=== PATIENT | female | born 1995 | race Caucasian/White ===

== ENCOUNTER 2019-01-25 12:44 | Emergency (ER) | payer MEDICARE ==
[~2019-01-25] VITALS: Ht 160 cm; Wt 79.0 kg
[2019-01-25 16:29] VITALS: BP 110/78
== END 2019-01-25 16:29 | disposition home or self-care (01) ==
LOC: ER 12:44
DX: N63.0 Unspecified lump in unspecified breast (principal); F17.210 Nicotine dependence, cigarettes, uncomplicated
CPT/HCPCS: 99282

== ENCOUNTER 2019-04-14 18:40 | Emergency (ER) | payer MEDICARE ==
[~2019-04-14] VITALS: Ht 167.6 cm; Wt 77.0 kg
[~2019-04-14 18:40] MED LIST: ACET650S27 RC; CEPH-569 MT; CHOL20004 PO; HYDR-4001 MT; SULF1TAB48 MT
[2019-04-14 19:09] VITALS: BP 135/83
== END 2019-04-14 22:06 | disposition left against medical advice (07) ==
LOC: ER 18:40
DX: Z53.21 Procedure and treatment not carried out due to patient leaving prior to being seen by health care provider (principal)

== ENCOUNTER 2020-12-19 12:44 | Emergency (ER) | payer MEDICAID, MEDICARE ==
[~2020-12-19] VITALS: Ht 162.6 cm; Wt 79.0 kg
[2020-12-19] MEDS ORDERED: CEFTRIAXONE SODIUM 500 MG/VIAL IM ONE (14:00)
[2020-12-19] MEDS ORDERED: FLUCONAZOLE 50MG TABLET PO ONE (16:00)
[2020-12-19] MEDS ORDERED: METR-167 MT (16:02)
[2020-12-19] MEDS ORDERED: DOXY100C2 MT (16:02)
[2020-12-19 16:25] VITALS: BP 114/68
[2020-12-22 04:07] LABS: NEISSERIA GONORRHOEAE NAA Negative (Negative)
== END 2020-12-19 16:28 | disposition home or self-care (01) ==
LOC: ER 13:03
DX: A64 Unspecified sexually transmitted disease (principal); J45.909 Unspecified asthma, uncomplicated; Z79.899 Other long term (current) drug therapy; Z88.6 Allergy status to analgesic agent
CPT/HCPCS: 87491; 87591; 96372; 99283; J0696

== ENCOUNTER 2021-04-26 10:15 | Emergency (ER) | payer MEDICAID, OTHER ==
[~2021-04-26] VITALS: Ht 165.1 cm; Wt 84.0 kg
[~2021-04-26 10:15] MED LIST changes: +DOXY100C5 MT; +METR-167 MT
[2021-04-26 10:38] VITALS: BP 108/54
[2021-04-27] MEDS ORDERED: AMOX-494 MT (15:13)
[2021-04-27] MEDS ORDERED: IBUP-2030 PO (15:13)
== END 2021-04-26 12:05 | disposition left against medical advice (07) ==
LOC: ER 10:15
DX: N63.0 Unspecified lump in unspecified breast (principal); M54.2 Cervicalgia; Z88.8 Allergy status to other drugs, medicaments and biological substances; Z79.899 Other long term (current) drug therapy; J45.909 Unspecified asthma, uncomplicated; Z98.890 Other specified postprocedural states; Z53.21 Procedure and treatment not carried out due to patient leaving prior to being seen by health care provider
CPT/HCPCS: 76641

== ENCOUNTER 2021-04-26 13:36 | Inpatient (IN) | payer OTHER ==
[~2021-04-26] VITALS: Ht 165.1 cm; Wt 83.9 kg
[2021-04-26] MEDS ORDERED: HYDROCODONE/ACETAMINOPHEN 5/325MG TABLET PO STA (20:12)
[2021-04-26] MEDS ORDERED: CLINDAMYCIN 600 MG in DEXTROSE 5% WATER 50 ML IV ONE (20:15)
[2021-04-26] MEDS ORDERED: VANCOMYCIN 1 G PREMIX 200 ML IV SCH (20:15)
[2021-04-26] MEDS ORDERED: CLINDAMYCIN 600MG PREMIX 50 ML IV SCH (20:45)
[2021-04-26 20:50] LABS: CHLORIDE 107 mEq/L (98-107)
[2021-04-26 20:52] LABS: BASOPHILS % 0.3 % (0.0-2.0); EOSINOPHILS % 1.7 % (0.0-5.0); HEMOGLOBIN. 11.5 g/dL (12.0-16.0); LYMPHOCYTES % 20.1 % (20.0-50.0); MEAN CORPUSCULAR HEMOGLOBIN 30.1 pg (28.0-32.0); MEAN CORPUSCULAR VOLUME 88.9 fL (81.0-99.0); MEAN PLATELET VOLUME 7.4 fl (7.4-10.4); MONOCYTES % 8.2 % (2.0-8.0); NEUTROPHILS % 69.7 % (40.0-76.0); PLATELET 515 x1000/uL (130-400); RED BLOOD CELL COUNT 3.83 mill/uL (4.2-5.4); RED CELL DISTRIBUTION WIDTH 12.5 % (11.6-14.6)
[2021-04-27 12:00] VITALS: BP 93/56
[2021-04-27] MEDS ORDERED: ACETAMINOPHEN 325MG TABLET PO PRN ×2 (13:00)
[2021-04-27] MEDS ORDERED: ONDANSETRON HCL 4MG/2ML INJ IV PRN (13:00)
[2021-04-27] MEDS ORDERED: IPRATROPIUM/ALBUTEROL 0.5-3(2.5)MG/3ML NEB HHN PRN (13:00)
[2021-04-27] MEDS ORDERED: CLONIDINE 0.1MG TABLET PO PRN (13:00)
[2021-04-27] MEDS ORDERED: DOCUSATE SODIUM 100MG CAPSULE PO PRN (13:00)
[2021-04-27] MEDS ORDERED: LORAZEPAM 0.5MG TABLET PO PRN (13:00)
[2021-04-27] MEDS ORDERED: NALOXONE HCL 0.4MG/ML VIAL IV PRN (13:30)
[2021-04-27] MEDS: HYDROCODONE/ACETAMINOPHEN 5/325MG TABLET PO PRN ×2 (13:47→18:37)
[2021-04-27] MEDS ORDERED: VANCOMYCIN 1500MG in DEXTROSE 5% WATER 250ML IV SCH (15:00)
[2021-04-27] MEDS ORDERED: AMOX-494 MT (15:13)
[2021-04-27] MEDS ORDERED: IBUP-2030 PO (15:13)
[2021-04-27 15:48] VITALS: BP 108/58
[2021-04-27] MEDS: PIPERACILLIN/TAZOBACTAM 3.375 G in DEXTROSE 5% WATER 50 ML IV SCH (16:05)
[2021-04-27 20:00] VITALS: BP 99/44
[2021-04-27] MEDS: VANCOMYCIN 1 G PREMIX 200 ML IV SCH (22:00)
[2021-04-28] VITALS: BP 103/55
[2021-04-28 04:00] VITALS: BP 103/49
[2021-04-28] MEDS: PIPERACILLIN/TAZOBACTAM 3.375 G in DEXTROSE 5% WATER 50 ML IV SCH ×2 (05:18→22:36)
[2021-04-28] MEDS: HYDROCODONE/ACETAMINOPHEN 5/325MG TABLET PO PRN ×2 (05:19→18:30)
[2021-04-28 06:36] LABS: BASOPHILS % 0.4 % (0.0-2.0); EOSINOPHILS % 1.7 % (0.0-5.0); HEMATOCRIT. 33.4 % (36.0-48.0); HEMOGLOBIN. 11.6 g/dL (12.0-16.0); LYMPHOCYTES % 12.8 % (20.0-50.0); MEAN CORPUSCULAR HEMOGLOBIN 30.4 pg (28.0-32.0); MEAN CORPUSCULAR VOLUME 87.7 fL (81.0-99.0); MEAN PLATELET VOLUME 7.3 fl (7.4-10.4); MONOCYTES % 7.4 % (2.0-8.0); NEUTROPHILS % 77.7 % (40.0-76.0); PLATELET 514 x1000/uL (130-400); RED BLOOD CELL COUNT 3.81 mill/uL (4.2-5.4); RED CELL DISTRIBUTION WIDTH 12.4 % (11.6-14.6)
[2021-04-28 06:43] LABS: CHLORIDE 105 mEq/L (98-107)
[2021-04-28 08:00] VITALS: BP 93/58
[2021-04-28] MEDS: VANCOMYCIN 1 G PREMIX 200 ML IV SCH (10:28)
[2021-04-28] MEDS ORDERED: SODIUM BICARBONATE 4% (2.4MEQ) 5ML VIAL IV ONE (11:01)
[2021-04-28] MEDS ORDERED: LIDOCAINE HCL/EPINEPHRINE 1%-EPI 1:100,000 20 ML VIAL ONE (11:01)
[2021-04-28 12:00] VITALS: BP 106/54
[2021-04-28] MEDS ORDERED: VANCOMYCIN 750 MG PREMIX 150 ML IV SCH (12:00)
[2021-04-28 16:19] VITALS: BP 113/51
[2021-04-28 20:00] VITALS: BP 112/60
[2021-04-29] VITALS: BP 89/49
[2021-04-29] MEDS ORDERED: VANCOMYCIN 750 MG PREMIX 150 ML IV SCH (03:00)
[2021-04-29] MEDS: HYDROCODONE/ACETAMINOPHEN 5/325MG TABLET PO PRN ×3 (03:27→21:54)
[2021-04-29 04:00] VITALS: BP 93/49
[2021-04-29] MEDS: PIPERACILLIN/TAZOBACTAM 3.375 G in DEXTROSE 5% WATER 50 ML IV SCH ×2 (05:00→13:15)
[2021-04-29 08:00] VITALS: BP 117/52
[2021-04-29 12:00] VITALS: BP 112/50
[2021-04-29 13:15] LABS: BASOPHILS % 0.4 % (0.0-2.0); HEMATOCRIT. 35.2 % (36.0-48.0); HEMOGLOBIN. 11.9 g/dL (12.0-16.0); LYMPHOCYTES % 16.3 % (20.0-50.0); MEAN CORPUSCULAR HEMOGLOBIN 29.9 pg (28.0-32.0); MEAN CORPUSCULAR VOLUME 88.6 fL (81.0-99.0); MEAN PLATELET VOLUME 7.1 fl (7.4-10.4); MONOCYTES % 8.4 % (2.0-8.0); NEUTROPHILS % 72.9 % (40.0-76.0); PLATELET 526 x1000/uL (130-400); RED BLOOD CELL COUNT 3.98 mill/uL (4.2-5.4); RED CELL DISTRIBUTION WIDTH 12.2 % (11.6-14.6)
[2021-04-29 16:00] VITALS: BP 110/18
[2021-04-29] MEDS: VANCOMYCIN 750 MG PREMIX 150 ML IV SCH ×2 (18:21→21:49)
[2021-04-29 20:00] VITALS: BP 98/59
[2021-04-30] MEDS: PIPERACILLIN/TAZOBACTAM 3.375 G in DEXTROSE 5% WATER 50 ML IV SCH ×4 (00:06→23:59)
[2021-04-30 03:06] VITALS: BP 100/54
[2021-04-30] MEDS: VANCOMYCIN 750 MG PREMIX 150 ML IV SCH (05:54)
[2021-04-30 06:44] LABS: CHLORIDE 106 mEq/L (98-107)
[2021-04-30 06:51] LABS: VANCOMYCIN TROUGH 9.3 ug/mL (5.0-10.0)
[2021-04-30 07:41] LABS: BASOPHILS % 0.3 % (0.0-2.0); HEMOGLOBIN. 12.2 g/dL (12.0-16.0); LYMPHOCYTES % 18.5 % (20.0-50.0); MEAN CORPUSCULAR HEMOGLOBIN 30.2 pg (28.0-32.0); MEAN CORPUSCULAR VOLUME 88.9 fL (81.0-99.0); MEAN PLATELET VOLUME 7.5 fl (7.4-10.4); MONOCYTES % 7.6 % (2.0-8.0); NEUTROPHILS % 71.6 % (40.0-76.0); PLATELET 525 x1000/uL (130-400); RED BLOOD CELL COUNT 4.05 mill/uL (4.2-5.4); RED CELL DISTRIBUTION WIDTH 12.3 % (11.6-14.6)
[2021-04-30 08:00] VITALS: BP 103/64
[2021-04-30] MEDS: HYDROCODONE/ACETAMINOPHEN 5/325MG TABLET PO PRN ×2 (08:59→21:32)
[2021-04-30] MEDS: VANCOMYCIN 1 G PREMIX 200 ML IV SCH ×2 (15:16→21:30)
[2021-04-30 16:00] VITALS: BP 118/64
[2021-04-30 20:00] VITALS: BP 109/66
[2021-05-01] VITALS: BP 92/45
[2021-05-01 04:00] VITALS: BP 107/58
[2021-05-01] MEDS: VANCOMYCIN 1 G PREMIX 200 ML IV SCH ×3 (05:02→21:27)
[2021-05-01 06:36] LABS: BASOPHILS % 0.5 % (0.0-2.0); EOSINOPHILS % 2.3 % (0.0-5.0); HEMATOCRIT. 33.4 % (36.0-48.0); HEMOGLOBIN. 11.7 g/dL (12.0-16.0); LYMPHOCYTES % 19.1 % (20.0-50.0); MEAN CORPUSCULAR HEMOGLOBIN 30.9 pg (28.0-32.0); MEAN CORPUSCULAR VOLUME 88.3 fL (81.0-99.0); MEAN PLATELET VOLUME 7.3 fl (7.4-10.4); MONOCYTES % 8.2 % (2.0-8.0); NEUTROPHILS % 69.9 % (40.0-76.0); PLATELET 525 x1000/uL (130-400); RED BLOOD CELL COUNT 3.78 mill/uL (4.2-5.4)
[2021-05-01 06:37] LABS: CHLORIDE 105 mEq/L (98-107)
[2021-05-01] MEDS: PIPERACILLIN/TAZOBACTAM 3.375 G in DEXTROSE 5% WATER 50 ML IV SCH ×2 (06:41→15:03)
[2021-05-01 06:45] LABS: VANCOMYCIN TROUGH 16.6 ug/mL (5.0-10.0)
[2021-05-01 08:00] VITALS: BP 111/67
[2021-05-01 12:00] VITALS: BP 111/85
[2021-05-01 16:00] VITALS: BP 109/67
[2021-05-01 20:00] VITALS: BP 116/70
[2021-05-02] VITALS: BP 102/57
[2021-05-02] MEDS: PIPERACILLIN/TAZOBACTAM 3.375 G in DEXTROSE 5% WATER 50 ML IV SCH ×3 (00:42→14:56)
[2021-05-02 04:00] VITALS: BP 104/58
[2021-05-02] MEDS: VANCOMYCIN 1 G PREMIX 200 ML IV SCH ×2 (05:09→13:03)
[2021-05-02 06:56] LABS: BASOPHILS % 0.3 % (0.0-2.0); EOSINOPHILS % 0.8 % (0.0-5.0); HEMATOCRIT. 35.7 % (36.0-48.0); HEMOGLOBIN. 11.9 g/dL (12.0-16.0); LYMPHOCYTES % 16.2 % (20.0-50.0); MEAN CORPUSCULAR HEMOGLOBIN 29.4 pg (28.0-32.0); MEAN CORPUSCULAR VOLUME 88.5 fL (81.0-99.0); MEAN PLATELET VOLUME 7.2 fl (7.4-10.4); MONOCYTES % 8.5 % (2.0-8.0); NEUTROPHILS % 74.2 % (40.0-76.0); PLATELET 574 x1000/uL (130-400); RED BLOOD CELL COUNT 4.04 mill/uL (4.2-5.4); RED CELL DISTRIBUTION WIDTH 12.5 % (11.6-14.6)
[2021-05-02 07:21] LABS: CHLORIDE 104 mEq/L (98-107)
[2021-05-02 08:00] VITALS: BP 92/54
[2021-05-02 12:00] VITALS: BP 99/63
[2021-05-02 16:00] VITALS: BP 100/59
[2021-05-02] MEDS ORDERED: SULF1TAB48 MT (16:50)
[2021-05-02 17:56] VITALS: BP 99/63
== END 2021-05-02 19:30 | disposition home or self-care (01) | DRG 720 ==
LOC: ER 13:36 → MICUSO 23:05 → 6EST 04-27 11:32
PROVIDERS: ADMIT Internal Medicine; ATTEND Internal Medicine
PROC: 0H9T3ZZ Drainage of Right Breast, Percutaneous Approach (ICD-10-PCS; principal; 2021-04-28)
DX: A41.9 Sepsis, unspecified organism (principal); D64.9 Anemia, unspecified; F17.200 Nicotine dependence, unspecified, uncomplicated; J45.20 Mild intermittent asthma, uncomplicated; N64.4 Mastodynia; Z20.822 Contact with and (suspected) exposure to COVID-19; Z88.8 Allergy status to other drugs, medicaments and biological substances; N61.1 Abscess of the breast and nipple; A49.02 Methicillin resistant Staphylococcus aureus infection, unspecified site
CPT/HCPCS: 36415; 76641; 76942; 80048; 80053; 80202; 84145; 85025; 86300; 87070; 87077; 87186; 87426; 99285; C1893; J2543; J3370; J3490; J7060

== ENCOUNTER 2023-03-24 16:01 | Emergency (ER) | payer MEDICAID, OTHER ==
[~2023-03-24] VITALS: Ht 165.1 cm; Wt 85.0 kg
[~2023-03-24 16:01] MED LIST changes: -ACET650S27 RC; -CEPH-569 MT; -CHOL20004 PO; -DOXY100C5 MT; +IBUP-2030 PO; -METR-167 MT
[2023-03-24 16:42] VITALS: O2SAT 99
[2023-03-24] MEDS ORDERED: LIDO1ADH23 TP (19:32)
[2023-03-24] MEDS ORDERED: IBUP-2028 MT ×2 (19:32)
[2023-03-24 20:03] VITALS: BP 107/72; PULSE 80; RESP 20; TEMP 97.9
== END 2023-03-24 20:05 | disposition home or self-care (01) ==
LOC: ER 16:01
DX: M53.3 Sacrococcygeal disorders, not elsewhere classified (principal); J45.909 Unspecified asthma, uncomplicated; Z88.6 Allergy status to analgesic agent; W19.XXXA Unspecified fall, initial encounter; Y93.89 Activity, other specified; Y92.89 Other specified places as the place of occurrence of the external cause; Y99.8 Other external cause status
CPT/HCPCS: 72100; 72220; 81025; 99284

== ENCOUNTER 2024-05-30 18:12 | Emergency (ER) | payer MEDICAID ==
[~2024-05-30] VITALS: Ht 157.5 cm; Wt 83.9 kg
[~2024-05-30 18:12] MED LIST changes: +LIDO1ADH23 TP
[2024-05-30 18:28] VITALS: O2SAT 98
[2024-05-30 21:15] LABS: CLARITY URINE TURBID (CLEAR); COLOR URINE DARK YELLOW (YELLOW); GLUCOSE URINE NEGATIVE (NEGATIVE); KETONES URINE TRACE (NEGATIVE); LEUKOCYTE ESTERASE URINE 3+ (NEGATIVE); NITRITE URINE POSITIVE (NEGATIVE); OCCULT BLOOD URINE 3+ (NEGATIVE); PH URINE 6.5 (4.5-8.0); PROTEIN URINE 2+ (NEGATIVE); SPECIFIC GRAVITY URINE 1.026 (1.005-1.030)
[2024-05-30 21:30] LABS: SQUAMOUS EPITHELIAL CELL URINE 3+ /lpf (RARE/1+)
[2024-05-30 21:32] LABS: RBC URINE 25-50 /hpf (0-2)
[2024-05-30 21:33] LABS: BACTERIA URINE 1+; WBC URINE 15-25 /hpf (0-2)
[2024-05-30] MEDS ORDERED: CEFP200T13 MT (21:41)
[2024-05-30 21:46] LABS: BASOPHILS % 0.3 % (0.0-2.0); EOSINOPHILS % 0.8 % (0.0-5.0); HEMATOCRIT. 38.2 % (36.0-48.0); HEMOGLOBIN. 13.4 g/dL (12.0-16.0); LYMPHOCYTES % 22.5 % (20.0-50.0); MEAN CORPUSCULAR HEMOGLOBIN 32.4 pg (28.0-32.0); MEAN CORPUSCULAR HGB CONC 35.1 g/dL (31.0-37.0); MEAN CORPUSCULAR VOLUME 92.6 fL (81.0-99.0); MEAN PLATELET VOLUME 7.7 fl (7.4-10.4); MONOCYTES % 7.7 % (2.0-8.0); NEUTROPHILS % 68.7 % (40.0-76.0); PLATELET 376 x1000/uL (130-400); RED BLOOD CELL COUNT 4.13 mill/uL (4.2-5.4); RED CELL DISTRIBUTION WIDTH 13.2 % (11.6-14.6)
[2024-05-30 21:57] LABS: CHLORIDE 105 mEq/L (98-107); SODIUM 139 mEq/L (136-145)
[2024-05-30 21:58] LABS: CALCIUM 9.5 mg/dL (8.7-10.4); CARBON DIOXIDE 25 mEq/L (21-32)
[2024-05-30 22:03] LABS: CREATININE 0.6 mg/dL (0.6-1.0); GLUCOSE 99 mg/dL (70-105); UREA NITROGEN BLOOD 7 mg/dL (9-23)
[2024-05-30 22:05] LABS: ALANINE AMINOTRANSFERASE 20 IU/L (10-49); ALBUMIN 4.3 g/dL (3.2-4.8); ASPARTATE AMINOTRANSFERASE 20 IU/L (<34); BILIRUBIN DIRECT 0.1 mg/dL (<=3.0); BILIRUBIN TOTAL 0.4 mg/dL (0.1-1.0)
[2024-05-30 22:24] LABS: HCG SCREEN NEGATIVE
[2024-05-30 22:37] VITALS: BP 120/79; PULSE 90; RESP 18; TEMP 36.7; O2SAT 99
[2024-05-30] MEDS: CEFTRIAXONE SODIUM 500MG VIAL IM ONE (22:37)
[2024-05-30 23:29] LABS: UCG KIT LOT# 873622; UCG SCREEN NEGATIVE
== END 2024-05-30 22:38 | disposition home or self-care (01) ==
LOC: ER 18:12
DX: J45.909 Unspecified asthma, uncomplicated (principal); N39.0 Urinary tract infection, site not specified; Z88.6 Allergy status to analgesic agent; Z98.890 Other specified postprocedural states; Z79.899 Other long term (current) drug therapy
CPT/HCPCS: 80076; 80048; 81003; 81025; 84703; 83690; 85025; 87086; 87186; 87077; 36415; 96372; 99283; J0696; Z7610

== ENCOUNTER 2024-08-10 12:52 | Emergency (ER) | payer MEDICAID ==
[~2024-08-10] VITALS: Ht 162.6 cm; Wt 81.6 kg
[~2024-08-10 12:52] MED LIST changes: +CEFP200T13 MT
[2024-08-10 12:56] VITALS: BP 108/73; TEMP 36.8; O2SAT 99
[2024-08-10 12:58] VITALS: PULSE 91; RESP 20; O2SAT 99
== END 2024-08-10 22:55 | disposition left against medical advice (07) ==
LOC: ER 14:04
DX: N63.10 Unspecified lump in the right breast, unspecified quadrant (principal); J45.909 Unspecified asthma, uncomplicated; Z53.21 Procedure and treatment not carried out due to patient leaving prior to being seen by health care provider

== ENCOUNTER 2024-11-02 21:53 | Emergency (ER) | payer MEDICAID ==
[~2024-11-02] VITALS: Ht 175.3 cm; Wt 82.0 kg
[2024-11-02 22:12] VITALS: BP 126/79; PULSE 130; RESP 18; TEMP 36.4; O2SAT 99
[2024-11-02] MEDS ORDERED: BACITRACIN ZINC OINT UDPKT TOP ONE (23:00)
[2024-11-02] MEDS ORDERED: TETANUS, DIPHTHERIA, PERTUSSIS VAC/PF 0.5ML (>10YR OLD) IM ONE (23:00)
[2024-11-02] MEDS ORDERED: ACETAMINOPHEN 325MG TABLET PO ONE (23:00)
== END 2024-11-02 23:58 | disposition left against medical advice (07) ==
LOC: ER 22:11
DX: R11.2 Nausea with vomiting, unspecified (principal); Z53.21 Procedure and treatment not carried out due to patient leaving prior to being seen by health care provider

== ENCOUNTER 2024-11-06 16:33 | Emergency (ER) | payer MEDICAID ==
[~2024-11-06] VITALS: Ht 165.1 cm; Wt 80.0 kg
[2024-11-06 16:36] VITALS: BP 143/90; PULSE 103; RESP 18; TEMP 37.1; O2SAT 100
== END 2024-11-06 18:15 | disposition left against medical advice (07) ==
LOC: ER 16:33
DX: R51.9 Headache, unspecified (principal); Z53.21 Procedure and treatment not carried out due to patient leaving prior to being seen by health care provider; Y04.0XXA Assault by unarmed brawl or fight, initial encounter; Y93.89 Activity, other specified; Y92.89 Other specified places as the place of occurrence of the external cause; Y99.8 Other external cause status

== ENCOUNTER 2025-03-23 17:59 | Emergency (ER) | payer MEDICAID ==
[~2025-03-23] VITALS: Ht 162.6 cm; Wt 73.0 kg
[2025-03-23 18:06] VITALS: BP 132/89; PULSE 100; RESP 14; TEMP 97.6; O2SAT 96
== END 2025-03-23 20:50 | disposition left against medical advice (07) ==
LOC: ER 17:59
DX: H57.12 Ocular pain, left eye (principal); Z53.21 Procedure and treatment not carried out due to patient leaving prior to being seen by health care provider
CPT/HCPCS: 99281

== ENCOUNTER 2025-03-23 23:29 | Emergency (ER) | payer MEDICAID ==
[~2025-03-23] VITALS: Ht 165.1 cm; Wt 82.1 kg
[2025-03-23 23:42] VITALS: O2SAT 99
[2025-03-23 23:46] VITALS: BP 125/91; PULSE 100; RESP 18; TEMP 36.8; O2SAT 100
== END 2025-03-24 01:48 | disposition left against medical advice (07) ==
LOC: ER 23:29
DX: H57.12 Ocular pain, left eye (principal)
CPT/HCPCS: 99281